=== PATIENT | female | born 1970 | race Caucasian/White ===

== ENCOUNTER 2019-04-17 01:20 | Emergency (ER) | payer SELFPAY ==
[~2019-04-17] VITALS: Ht 157.5 cm; Wt 53.6 kg
[~2019-04-17 01:20] MED LIST: CITA10TA68 PO
[2019-04-17 01:26] VITALS: BP 155/80
[2019-04-17] MEDS ORDERED: METO25XL PO (01:27)
[2019-04-17] MEDS ORDERED: METHI5 PO (01:28)
== END 2019-04-17 02:01 | disposition left against medical advice (07) ==
LOC: EMS 01:21
DX: R10.9 Unspecified abdominal pain (principal); Z53.21 Procedure and treatment not carried out due to patient leaving prior to being seen by health care provider